=== PATIENT | female | born 1955 | race Two or more races ===

== ENCOUNTER 2025-01-22 06:38 | Day surgery (SDC) | payer OTHER ==
[2025-01-16 09:09] VITALS: BP 127/74
[2025-01-16 09:21] LABS: BASO % 0.5 % (0.1-1.2); EOS # 0.20 (0.04-0.54); EOS % 2.4 % (0.7-7.0); LYMPH # 1.65 (1.18-3.74); LYMPH % 19.7 % (19.3-53.1); MEAN PLATELET VOLUME 9.50 fl (9.4-12.4); MONO # 0.51 (0.24-0.82); MONO % 6.1 % (4.7-12.5); NEUT # 5.94 (1.56-6.13); NEUT % 71.1 % (34.0-71.1); RED CELL DISTRIBUTION WIDTH 14.1 % (11.6-14.4)
[2025-01-16 09:31] LABS: URINE APPEARANCE Clear; URINE BILIRRUBIN Negative (NEGATIVE); URINE BLOOD Negative; URINE COLOR Yellow; URINE GLUCOSE Negative (NEGATIVE); URINE KETONE Trace (NEGATIVE); URINE LEUKOCYTE Moderate; URINE NITRATE Negative; URINE PROTEIN Negative (NEGATIVE); URINE UROBILINOGEN 1.0 E.U./dl
[2025-01-16 09:35] LABS: URINE BACTERIA 1660.5 uL (0.0-1933); URINE EPITHELIAL CELLS 16.9 uL (0.0-38.8); URINE RBC 12.8 uL (0.0-20.8); URINE WBC 226.6 uL (0.0-23.2)
[2025-01-16 09:50] LABS: INR 1.0
[2025-01-16 09:50] LABS: URINE CAST 0.00 uL (0.0-1.40)
[2025-01-16 10:14] LABS: ALT/SGPT 21.0 U/L (12-78); AST/SGOT 15.0 U/L (15-37); BILIRUBIN TOTAL 1.01 mg/dL (0.3-1.2); BUN CREA RATIO 20.0 (7.0-25.0); CREATININE SERUM 0.95 mg/dL (0.55-1.02); GFR 58.5; GLOBULINA 3.6 G/DL (2.4-3.5); GLUCOSE FASTING 118.0 mg/dL (65-100); OSMOLALITY SERUM 294.0 MOSM/KG (275-295)
[~2025-01-22] VITALS: Ht 165.1 cm; Wt 90.7 kg
[~2025-01-22 06:38] MED LIST: ATORVASTATIN CA40 MG; CYMBALTA30 MG PO; ECOTRIN325 M1; LOSARTAN POTAS100 MG; TOPROL XL50 M1; TRADJENTA5 MG
[2025-01-22] MEDS ORDERED: GENTAMICIN SULFATE 40 MG/ML VIAL IV ONE (11:30)
[2025-01-22] MEDS ORDERED: GENTAMICIN SULFATE 40 MG/ML VIAL IR ONE (11:30)
[2025-01-22] MEDS ORDERED: CEFAZOLIN SODIUM 1,000 MG VIAL IV ONE (11:30)
[2025-01-22] MEDS ORDERED: TRAM1TAB98 PO (12:19)
[2025-01-22] MEDS ORDERED: CEPHALEXIN250 MG PO (12:20)
== END 2025-01-22 14:40 | disposition home or self-care (01) ==
LOC: CIR.AMB 06:38
PROVIDERS: ATTEND Obstetrics & Gynecology Gynecology
DX: R15.9 Full incontinence of feces (principal); N32.81 Overactive bladder; N39.41 Urge incontinence; R35.0 Frequency of micturition
CPT/HCPCS: 64581; 64590; 95972; C1767; C1778